=== PATIENT | male | born 1940 | race American Indian/Alaskan Native ===

== ENCOUNTER 2018-06-16 05:57 | Day surgery (SDC) | payer MEDICARE ==
[2018-06-16] MEDS ORDERED: ECOTRIN PO NR (06:38)
[2018-06-16] MEDS ORDERED: NACL 0.9% 500 ML 500 ML IV SCH (07:00)
[2018-06-16] MEDS ORDERED: ECOTRIN PO ONE (07:11)
[2018-06-16 07:18] LABS: Hematocrit 29.5 % (35.5-45.6); Hemoglobin 9.5 gm/dl (11.8-15.2); INR 1.05 (0.87-1.13); Mean Corpuscular HGB Conc 32 % (32-34); Mean Corpuscular Volume 89 fl (84-94); Platelet Count 208 K/mm3 (140-440); Red Blood Count 3.32 M/mm3 (3.65-5.03); Red Cell Distribution Width 15.9 % (13.2-15.2)
[2018-06-16 07:19] LABS: Partial Thromboplastin Time 25.2 Sec. (24.2-36.6)
[2018-06-16 07:22] LABS: Calcium 8.7 mg/dL (8.4-10.2)
[2018-06-16] MEDS ORDERED: HEPARIN 10,000 UNITS/10 ML ONE (08:18)
[2018-06-16] MEDS ORDERED: HEPARIN/NS 5000 UNIT/500ML(CATH LAB) 1,000 ML IR ONE (08:18)
[2018-06-16] MEDS ORDERED: NITROGLYCERIN SYRINGE 0 ML ONE (08:19)
[2018-06-16] MEDS ORDERED: CALAN ONE (08:19)
[2018-06-16] MEDS: VERSED ONE ×2 (08:44→08:54)
[2018-06-16] MEDS: SUBLIMAZE ONE ×2 (08:44→08:54)
[2018-06-16] MEDS: XYLOCAINE 2% INFILTRATI ONE ×3 (08:45→09:03)
[2018-06-16] MEDS ORDERED: APRESOLINE ONE (09:23)
[2018-06-16 09:34] LABS: Basophils % (Manual) 0 % (0.0-1.8); Total Cells Counted 100
[2018-06-16 09:37] LABS: Anisocytosis 1+; Ovalocytes Few; Platelet Estimate Consistent w Auto; Poikilocytosis 1+; Target Cells Few
--- NOTE | 2018-06-16 10:16 | Cardiac Catherization Report ---
CARDIAC CATHETERIZATION INDICATION FOR PROCEDURE: A 77-year-old -[place] gentleman with history of hypertension, heart failure with reduced ejection fraction, diabetes mellitus and chronic kidney disease, on peritoneal dialysis. He is scheduled for cardiac catheterization for definitive diagnosis, and treatment to rule out any underlying coronary artery disease. The patient had echocardiogram performed on 05/07/2018, which showed ejection fraction of 35-40% with moderate concentric LVH. Elevated left atrial pressure and moderately dilated left atrium noted. Trace aortic insufficiency noted. The patient is aware of the procedure, potential complications, and alternatives of therapy available. DESCRIPTION OF PROCEDURE: The patient was brought to the catheterization laboratory and he was evaluated for moderate sedation. The patient was felt to be a candidate for moderate sedation. The patient received IV Versed and fentanyl. Subsequently, the patient was prepared in a standard way and right groin was prepared with chlorhexidine solution. Sterile drapes were applied. Local anesthesia was given using 2% Xylocaine. Subsequently, using fluoroscopy and also ultrasound guidance, right femoral artery puncture was made without difficulty. Subsequently, 5-Monegasque sheath was introduced. A 5-Monegasque multipurpose catheter was used to obtain the angiograms of the left ventricle done in KING projection using hand injection followed by angiograms of the right coronary artery, left coronary artery in multiple views. At the end of the procedure, the patient received IV hydralazine for control of the blood pressure and manual pressure was applied with a good hemostasis. Final angiograms of the right femoral artery showed, a femoral access was obtained using the right common femoral artery. Good hemostasis was achieved with manual pressure. Following the patient was transferred to the room in stable condition. No untoward complications were noted. The patient tolerated moderate sedation well. The patient was monitored throughout with EKG monitoring, pulse oximetry, and also hemodynamic monitoring. At the end of the procedure, the patient is communicative, breathing normally, and moving all the extremities. No untoward effects were noted from IV sedation. HEMODYNAMICS: 1. Opening aortic pressure 194/82. Left ventricular pressure 193/25. No gradient across the aortic valve. Estimated ejection fraction 35-40%. No gradient across the aortic valve. Left ventriculogram done in KING projection using hand injection showed mildly dilated left ventricle with mild diffuse hypokinesis, ejection fraction around 35-40%. Mitral regurgitation could not be evaluated because of limited amount of dye injected. 2. Right coronary artery codominant vessel is angiographically smooth and normal, arises from right coronary cusp. Left coronary artery arises normally from left coronary cusps. Left main, LAD, which curves around the apex and its branches, circumflex artery and branch are angiographically smooth and normal, but tortuous. Mild calcifications were noted in the proximal parts of the left coronary system. FINAL IMPRESSION: 1. Mildly dilated left ventricle with mild hypokinesis, ejection fraction 35-40%. 2. Mild calcifications of the coronaries in the left coronary system. 3. Essentially normal coronary anatomy with a right coronary artery being codominant vessel. 4. Right femoral artery was used for access and no complications were noted. The patient tolerated IV sedation well. Sedation was started at 8:54 a.m. and monitoring ended at 9:19 a.m. The patient will be continued on risk factor modification and medical therapy. Findings were explained to the patient. The patient was transferred to the room in stable condition. The patient is on peritoneal dialysis on a chronic basis. [facility]# [id number] JUAREZ/COLETTE
[2018-06-16] MEDS ORDERED: NORCO 5/325 PO ONE (10:31)
[2018-06-16] MEDS ORDERED: NORCO 5/325 ONE (10:36)
--- NOTE | 2018-06-16 11:11 | Short Stay Summary ---
Short Stay Documentation Date of service: 06/16/18 - History H&P: obtained from office - Allergies and Medications Current Medications: Allergies No Known Allergies Allergy (Verified 06/16/18 06:38) Home Medications Medication Instructions Recorded Confirmed Last Taken Type Aspirin [Aspir-Low] 81 mg PO DAILY 06/16/18 06/16/18 06/15/18 History 81mg Carvedilol 25 mg PO BID 06/16/18 06/16/18 06/15/18 History 25mg Cholecalciferol Vit D3 1,000 units PO QDAY 06/16/18 06/16/18 06/15/18 History 1000 units Cyanocobalamin [Vitamin B-12] 500 mcg PO DAILY 06/16/18 06/16/18 06/15/18 History 500mcg Insulin Detemir [Levemir VIAL] 5 units SC QHS 06/16/18 06/16/18 06/15/18 History 5 units Insulin Regular, Human Inj 100 units SC TID 06/16/18 06/16/18 06/15/18 History 5 units Rosuvastatin (Nf) [Crestor] 10 mg PO QHS 06/16/18 06/16/18 06/15/18 History 10mg Torsemide [Demadex] 20 mg PO BID 06/16/18 06/16/18 06/15/18 History 20mg amLODIPine 10 mg PO DAILY 06/16/18 06/16/18 06/15/18 History 10mg hydrALAZINE [Apresoline TAB] 25 mg PO QDAY 06/16/18 06/16/18 06/15/18 History 25mg Active Medications Sodium Chloride (Nacl 0.9% 500 Ml) 500 mls @ 50 mls/hr IV DIRECT ZOË Stop: 06/16/18 16:59 Last Admin: 06/16/18 08:45 Dose: 100 mls Documented by: - Brief post op/procedure progress note Date of procedure: 06/16/18 Pre-op diagnosis: CMP Post-op diagnosis: same Procedure: C - see dictated cath report Anesthesia: local Estimated blood loss: none Condition: stable - Disposition Condition at discharge: Good Disposition: DC-01 TO HOME OR SELFCARE - Discharge Diagnoses (1) Nonischemic cardiomyopathy Status: Chronic (2) ESRD (end stage renal disease) Status: Chronic Short Stay Discharge Plan Activity: advance as tolerated Wound: open to air, keep clean and dry, per your surgeon's advice Follow up with: PRIMARY CARE, [Primary Care Provider] - 7 Days
[2018-06-16 12:42] VITALS: BP 179/74
== END 2018-06-16 13:35 | disposition home or self-care (01) ==
LOC: CATHLABREC 05:57
PROVIDERS: ATTEND Internal Medicine
DX: I25.10 Atherosclerotic heart disease of native coronary artery without angina pectoris (principal); I42.8 Other cardiomyopathies; I13.2 Hypertensive heart and chronic kidney disease with heart failure and with stage 5 chronic kidney disease, or end stage renal disease; N18.6 End stage renal disease; I50.9 Heart failure, unspecified; E78.00 Pure hypercholesterolemia, unspecified; Z99.2 Dependence on renal dialysis; Z98.890 Other specified postprocedural states; Z79.01 Long term (current) use of anticoagulants; Z79.84 Long term (current) use of oral hypoglycemic drugs; Z79.82 Long term (current) use of aspirin; Z79.4 Long term (current) use of insulin
CPT/HCPCS: 36415; 80048; 85007; 85025; 85610; 85730; 93005; 93010; 93458; 99156; 99157; J0360; J1644; J2250; J3010; J7040; 76937; Q9967

== ENCOUNTER 2021-04-04 18:27 | Emergency (ER) | payer MEDICARE ==
[2021-04-04 18:59] LABS: Basophils # (Auto) 0.1 K/mm3 (0.0-0.1); Basophils % (Auto) 2.2 % (0.0-1.8); Eosinophils # (Auto) 0.3 K/mm3 (0.0-0.4); Eosinophils % (Auto) 6.2 % (0.0-4.3); Hematocrit 20.7 % (35.5-45.6); Hemoglobin 6.6 gm/dl (11.8-15.2); Lymphocytes # (Auto) 0.8 K/mm3 (1.2-5.4); Lymphocytes % (Auto) 14.3 % (13.4-35.0); Mean Corpuscular HGB Conc 32 % (32-34); Mean Corpuscular Volume 95 fl (84-94); Monocytes # (Auto) 0.7 K/mm3 (0.0-0.8); Monocytes % (Auto) 11.5 % (0.0-7.3); Platelet Count 276 K/mm3 (140-440); Red Blood Count 2.17 M/mm3 (3.65-5.03); Red Cell Distribution Width 15.3 % (13.2-15.2)
--- NOTE | 2021-04-04 19:00 | Emergency Department Report ---
- General Chief complaint: Recheck/Abnormal Lab/Rx Stated complaint: Hgb 5.4 PUI?: No Time Seen by Provider: 04/04/21 18:43 Source: RN notes reviewed Mode of arrival: Ambulatory Limitations: Other - History of Present Illness Initial comments: Chief complaint low hemoglobin HPI: 80-year-old male with history of VTE, diabetes mellitus, end-stage renal disease on hemodialysis Friday, CVA, anemia, subdural hemorrhage, hyperlipidemia, Alzheimer's disease, Hypertension, who presents with abnormal lab. Hemoglobin 5 according to routine labs obtained at hemodialysis. Patient is a resident of [facility]. Patient denies pain. He does endorse weakness. Patient is DO NOT RESUSCITATE status according to form signed March 28, 2021 Complaint: generalized weakness -: Gradual Location: generalized Severity scale (0 -10): 0 Consistency: constant Improves with: none Worsens with: none Associated Symptoms: denies other symptoms - Related Data Home Medications Medication Instructions Recorded Confirmed Last Taken Cholecalciferol Vit D3 1,000 units PO QDAY 06/16/18 08/20/18 06/15/18 1000 units Cyanocobalamin [Vitamin B-12] 500 mcg PO DAILY 06/16/18 08/20/18 06/15/18 500 mcg Insulin Detemir [Levemir VIAL] 5 units SC QHS 06/16/18 08/20/18 06/15/18 5 units Insulin Regular, Human Inj 100 units SC TID 06/16/18 08/20/18 06/15/18 5 units Rosuvastatin (Nf) [Crestor] 10 mg PO QHS 06/16/18 08/20/18 06/15/18 10 mg Torsemide [Demadex] 20 mg PO BID 06/16/18 08/20/18 06/15/18 20 mg amLODIPine 10 mg PO DAILY 06/16/18 08/20/18 06/15/18 10 mg Previous Rx's Medication Instructions Recorded Last Taken Type Aspirin [Aspir-Low] 81 mg PO DAILY 30 Days tablet. 08/28/18 Unknown Rx HYDROcodone/APAP 5-325 [[place] 5 - 325 each PO Q6H PRN 5 Days #20 08/28/18 Unknown Rx 5-325 mg TAB] tablet Sevelamer Carbonate [Renvela] 800 mg PO TIDWM 30 Days tablet 08/28/18 Unknown Rx carvediloL [Coreg] 12.5 mg PO BID@0800,1700 30 Days 08/28/18 Unknown Rx tablet hydrALAZINE [Apresoline TAB] 25 mg PO Q8HR 30 Days tablet 08/28/18 Unknown Rx lisinopriL [Zestril TAB] 2.5 mg PO QDAY 30 Days tablet 08/28/18 Unknown Rx Allergies Allergy/AdvReac Type Severity Reaction Status Date / Time No Known Allergies Allergy Verified 06/16/18 06:38 ED Review of Systems ROS: Stated complaint: Hgb 5.4 Other details as noted in HPI Comment: All other systems reviewed and negative Respiratory: denies: cough, shortness of breath Cardiovascular: denies: chest pain Gastrointestinal: denies: abdominal pain Musculoskeletal: denies: back pain ED Past Medical Hx - Past Medical History Previous Medical History?: Yes Hx Hypertension: Yes Hx Congestive Heart Failure: Yes Hx Diabetes: Yes Hx Renal Disease: Yes (CKD) - Surgical History Past Surgical History?: Yes Additional Surgical History: peritoneal dialysis - Social History Smoking Status: Never Smoker - Medications Home Medications: Home Medications Medication Instructions Recorded Confirmed Last Taken Type Cholecalciferol Vit D3 1,000 units PO QDAY 06/16/18 08/20/18 06/15/18 History 1000 units Cyanocobalamin [Vitamin B-12] 500 mcg PO DAILY 06/16/18 08/20/18 06/15/18 History 500 mcg Insulin Detemir [Levemir VIAL] 5 units SC QHS 06/16/18 08/20/18 06/15/18 History 5 units Insulin Regular, Human Inj 100 units SC TID 06/16/18 08/20/18 06/15/18 History 5 units Rosuvastatin (Nf) [Crestor] 10 mg PO QHS 06/16/18 08/20/18 06/15/18 History 10 mg Torsemide [Demadex] 20 mg PO BID 06/16/18 08/20/18 06/15/18 History 20 mg amLODIPine 10 mg PO DAILY 06/16/18 08/20/18 06/15/18 History 10 mg Aspirin [Aspir-Low] 81 mg PO DAILY 30 Days tablet. 08/28/18 Unknown Rx HYDROcodone/APAP 5-325 [[place] 5 - 325 each PO Q6H PRN 5 Days #20 08/28/18 Unknown Rx 5-325 mg TAB] tablet Sevelamer Carbonate [Renvela] 800 mg PO TIDWM 30 Days tablet 08/28/18 Unknown Rx carvediloL [Coreg] 12.5 mg PO BID@0800,1700 30 Days 08/28/18 Unknown Rx tablet hydrALAZINE [Apresoline TAB] 25 mg PO Q8HR 30 Days tablet 08/28/18 Unknown Rx lisinopriL [Zestril TAB] 2.5 mg PO QDAY 30 Days tablet 08/28/18 Unknown Rx ED Physical Exam - General Limitations: Other General appearance: alert, in no apparent distress - Head Head exam: Present: atraumatic, normocephalic - Eye Eye exam: Present: normal appearance - ENT ENT exam: Present: mucous membranes moist - Neck Neck exam: Present: normal inspection, full ROM - Respiratory Respiratory exam: Present: normal lung sounds bilaterally. Absent: respiratory distress, wheezes, rhonchi, stridor - Cardiovascular Cardiovascular Exam: Present: regular rate, normal rhythm, normal heart sounds. Absent: systolic murmur, diastolic murmur, rubs, gallop - GI/Abdominal GI/Abdominal exam: Present: soft, normal bowel sounds. Absent: distended, tenderness, guarding, rebound - Rectal Rectal exam: Present: deferred - Extremities Exam Extremities exam: Present: pedal edema - Neurological Exam Neurological exam: Present: alert, other (Oriented to name) - Psychiatric Psychiatric exam: Present: flat affect - Skin Skin exam: Present: warm, dry, intact, normal color. Absent: rash ED Course Vital Signs 04/04/21 04/04/21 04/04/21 18:33 21:28 21:30 Temperature 97.9 F 97.5 F L Pulse Rate 51 L 61 63 Respiratory 18 11 L 12 Rate Blood Pressure 189/64 Blood Pressure 137/54 168/67 [Right] O2 Sat by Pulse 98 98 96 Oximetry 04/04/21 04/04/21 04/04/21 21:40 21:50 22:13 Temperature 97.6 F Pulse Rate 63 63 66 Respiratory 13 12 12 Rate Blood Pressure 189/64 180/68 183/71 Blood Pressure [Right] O2 Sat by Pulse 97 97 95 Oximetry 04/04/21 04/04/21 04/04/21 22:28 22:50 23:10 Temperature 97.6 F Pulse Rate 67 67 68 Respiratory 12 12 12 Rate Blood Pressure 188/70 182/64 177/67 Blood Pressure [Right] O2 Sat by Pulse 96 95 96 Oximetry 04/04/21 23:23 Temperature 98.1 F Pulse Rate 68 Respiratory 12 Rate Blood Pressure 168/69 Blood Pressure [Right] O2 Sat by Pulse 96 Oximetry ED Medical Decision Making - Lab Data Result diagrams: 04/04/21 18:44 04/04/21 18:44 - Medical Decision Making Symptomatic anemia, hemoglobin less than 7. Patient received 1 unit packed red blood cell in the emergency department. Will be discharged to [facility] after transfusion is complete. Potassium within normal limits. Chemistry otherwise unremarkable exception of chronic kidney disease. Clinical impression: Anemia chronic disease without evidence of GI bleed. Critical care attestation.: If time is entered above; I have spent that time in minutes in the direct care of this critically ill patient, excluding procedure time. ED Disposition Clinical Impression: Symptomatic anemia Disposition: [address] [place] [address] Is pt being admited?: No Does the pt Need Aspirin: No Condition: Stable Additional Instructions: Mr. Hein received 1 unit of packed red blood cells in the emergency department.
[2021-04-04 19:21] LABS: Albumin 3.6 g/dL (3.9-5); Calcium 8.9 mg/dL (8.4-10.2)
[2021-04-04] MEDS ORDERED: SODIUM CHLORIDE 0.9% 500 ML 500 ML IV ONE (20:11)
[2021-04-05 02:11] LABS: Basophils # (Auto) 0.1 K/mm3 (0.0-0.1); Basophils % (Auto) 1.5 % (0.0-1.8); Eosinophils # (Auto) 0.3 K/mm3 (0.0-0.4); Eosinophils % (Auto) 4.1 % (0.0-4.3); Hematocrit 23.2 % (35.5-45.6); Hemoglobin 7.4 gm/dl (11.8-15.2); Lymphocytes # (Auto) 1.1 K/mm3 (1.2-5.4); Lymphocytes % (Auto) 12.9 % (13.4-35.0); Mean Corpuscular HGB Conc 32 % (32-34); Mean Corpuscular Volume 92 fl (84-94); Monocytes % (Auto) 11.7 % (0.0-7.3); Platelet Count 249 K/mm3 (140-440); Red Blood Count 2.53 M/mm3 (3.65-5.03); Red Cell Distribution Width 18.3 % (13.2-15.2)
[2021-04-05 04:03] VITALS: BP 172/69
== END 2021-04-05 05:37 ==
LOC: ED 18:27
DX: D64.9 Anemia, unspecified (principal); I10 Essential (primary) hypertension; E11.8 Type 2 diabetes mellitus with unspecified complications; Z86.79 Personal history of other diseases of the circulatory system
CPT/HCPCS: 36415; 36430; 80053; 82962; 85025; 86850; 86900; 86901; 86920; 96360; 96361; 99283; J7040; P9016

== ENCOUNTER 2021-04-18 12:45 | Emergency (ER) | payer MEDICARE ==
[2021-04-18 12:48] VITALS: BP 158/96
--- NOTE | 2021-04-18 13:02 | Emergency Department Report ---
HPI - General Chief Complaint: Recheck/Abnormal Lab/Rx Time Seen by Provider: 04/18/21 12:51 - HPI HPI: Room 19 Patient is a 80-year-old male sent from [facility] secondary to anemia. Patient reportedly has an H&H of 6.3/18.9 from blood draw on 04/12/2021 at the [facility]. Patient denies complaints. Patient denies shortness of breath or dizziness. Patient denies nausea/vomiting, bright red blood per rectum or melena. Patient has a history of ESRD reportedly was last dialyzed 04/14/2021. Family states they did not dialyze the patient yesterday as scheduled secondary to his low H&H ED Past Medical Hx - Past Medical History Hx Hypertension: Yes Hx Congestive Heart Failure: Yes Hx Diabetes: Yes Hx Renal Disease: Yes (CKD) - Surgical History Additional Surgical History: peritoneal dialysis, right chest Vas-Cath - Family History Family history: no significant - Social History Smoking Status: Never Smoker Substance Use Type: None - Medications Home Medications: Home Medications Medication Instructions Recorded Confirmed Last Taken Type Cholecalciferol Vit D3 1,000 units PO QDAY 06/16/18 08/20/18 06/15/18 History 1000 units Cyanocobalamin [Vitamin B-12] 500 mcg PO DAILY 06/16/18 08/20/18 06/15/18 History 500 mcg Insulin Detemir [Levemir VIAL] 5 units SC QHS 06/16/18 08/20/18 06/15/18 History 5 units Insulin Regular, Human Inj 100 units SC TID 06/16/18 08/20/18 06/15/18 History 5 units Rosuvastatin (Nf) [Crestor] 10 mg PO QHS 06/16/18 08/20/18 06/15/18 History 10 mg Torsemide [Demadex] 20 mg PO BID 06/16/18 08/20/18 06/15/18 History 20 mg amLODIPine 10 mg PO DAILY 06/16/18 08/20/18 06/15/18 History 10 mg Aspirin [Aspir-Low] 81 mg PO DAILY 30 Days tablet. 08/28/18 Unknown Rx HYDROcodone/APAP 5-325 [[place] 5 - 325 each PO Q6H PRN 5 Days #20 08/28/18 Unknown Rx 5-325 mg TAB] tablet Sevelamer Carbonate [Renvela] 800 mg PO TIDWM 30 Days tablet 08/28/18 Unknown Rx carvediloL [Coreg] 12.5 mg PO BID@0800,1700 30 Days 08/28/18 Unknown Rx tablet hydrALAZINE [Apresoline TAB] 25 mg PO Q8HR 30 Days tablet 08/28/18 Unknown Rx lisinopriL [Zestril TAB] 2.5 mg PO QDAY 30 Days tablet 08/28/18 Unknown Rx ED Review of Systems ROS: Stated complaint: LOW HH Other details as noted in HPI Constitutional: no symptoms reported Eyes: denies: eye pain Respiratory: no symptoms reported. denies: shortness of breath Cardiovascular: denies: chest pain Endocrine: no symptoms reported Gastrointestinal: denies: abdominal pain, nausea, vomiting, melena, hematochezia Genitourinary: denies: testicular pain Musculoskeletal: denies: back pain Neurological: denies: vertigo Physical Exam - Physical Exam Vital Signs: Vital Signs 04/18/21 12:47 Temperature 98.2 F Pulse Rate 72 Respiratory 16 Rate Blood Pressure 158/96 [Right] O2 Sat by Pulse 97 Oximetry Physical Exam: GENERAL: The patient is well-developed well-nourished male lying on stretcher not appearing to be in acute distress. [] HEENT: Normocephalic. Atraumatic. Extraocular motions are intact. Patient has moist mucous membranes. NECK: Supple. Trachea midline CHEST/LUNGS: Clear to auscultation. There is no respiratory distress noted. HEART/CARDIOVASCULAR: Regular. There is no tachycardia. There is a 3/6 systolic murmur ABDOMEN: Abdomen is soft, nontender. Patient has normal bowel sounds. There is no abdominal distention. SKIN: There is no rash. There is no edema. There is no diaphoresis. NEURO: The patient is awake and alert. The patient is cooperative. The patient has no focal neurologic deficits. The patient has normal speech. GCS 15 MUSCULOSKELETAL: There is no evidence of acute injury. ED Course Vital Signs 04/18/21 12:47 Temperature 98.2 F Pulse Rate 72 Respiratory 16 Rate Blood Pressure 158/96 [Right] O2 Sat by Pulse 97 Oximetry - Consultations Consultation #1: 04/18/21 14:00 Nephrology paged 04/18/21 14:[address] Mando- can administer Kayexalate 30 g p.o. patient can follow-up for dialysis tomorrow at normally scheduled time Consultation #2: 04/18/21 14:09 Case discussed with patient's primary physician Dr. Allison transfer patient back to retirement ED Medical Decision Making - Lab Data Result diagrams: 04/18/21 13:03 04/18/21 13:03 Laboratory Tests 04/18/21 04/18/21 04/18/21 13:03 13:03 13:03 WBC 8.9 RBC 2.31 L Hgb 7.2 L Hct 21.6 L MCV 94 MCH 31 MCHC 33 RDW 18.8 H Plt Count 262 Lymph % (Auto) 9.0 L [place] % (Auto) 6.5 Eos % (Auto) 7.4 H Baso % (Auto) 1.2 Lymph # (Auto) 0.8 L [place] # (Auto) 0.6 Eos # (Auto) 0.7 H Baso # (Auto) 0.1 Seg Neutrophils % 75.9 H Seg Neutrophils # 6.7 Sodium 141 Potassium 5.4 H Chloride 103.7 Carbon Dioxide 23 Anion Gap 20 BUN 71 H Creatinine 6.9 H Estimated GFR 9 BUN/Creatinine Ratio 10 Glucose 150 H Calcium 9.4 Blood Type O POSITIVE - Differential Diagnosis Anemia of chronic disease Critical care attestation.: If time is entered above; I have spent that time in minutes in the direct care of this critically ill patient, excluding procedure time. ED Disposition Clinical Impression: Anemia of chronic disease, Hyperkalemia Disposition: 03 RESIDENTIAL FACILITY Is pt being admited?: No Does the pt Need Aspirin: No Condition: Stable Additional Instructions: Return to the emergency department should you develop worsening symptoms, isak bility to tolerate food or liquids, high fever or any other concerns Time of Disposition: 14:11
[2021-04-18 13:55] LABS: Basophils # (Auto) 0.1 K/mm3 (0.0-0.1); Basophils % (Auto) 1.2 % (0.0-1.8); Calcium 9.4 mg/dL (8.4-10.2); Eosinophils # (Auto) 0.7 K/mm3 (0.0-0.4); Eosinophils % (Auto) 7.4 % (0.0-4.3); Hematocrit 21.6 % (35.5-45.6); Hemoglobin 7.2 gm/dl (11.8-15.2); Lymphocytes # (Auto) 0.8 K/mm3 (1.2-5.4); Mean Corpuscular HGB Conc 33 % (32-34); Mean Corpuscular Volume 94 fl (84-94); Monocytes # (Auto) 0.6 K/mm3 (0.0-0.8); Monocytes % (Auto) 6.5 % (0.0-7.3); Platelet Count 262 K/mm3 (140-440); Red Blood Count 2.31 M/mm3 (3.65-5.03); Red Cell Distribution Width 18.8 % (13.2-15.2)
[2021-04-18] MEDS ORDERED: SODIUM POLYSTYRENE 15 GM/60 ML ORAL LIQD PO ONE (14:08)
== END 2021-04-18 17:06 ==
LOC: ED 12:45
DX: D64.9 Anemia, unspecified (principal); E87.5 Hyperkalemia; I13.0 Hypertensive heart and chronic kidney disease with heart failure and stage 1 through stage 4 chronic kidney disease, or unspecified chronic kidney disease; E11.22 Type 2 diabetes mellitus with diabetic chronic kidney disease; N18.9 Chronic kidney disease, unspecified
CPT/HCPCS: 36415; 80048; 85025; 86850; 86900; 86901; 99283

== ENCOUNTER 2021-04-26 19:31 | Observation (INO) | payer MEDICARE ==
[2021-04-26] MEDS ORDERED: cloNIDine 0.2 MG TAB PO ONE (20:06)
--- NOTE | 2021-04-26 20:10 | Emergency Department Report ---
HPI - General Chief Complaint: Recheck/Abnormal Lab/Rx Time Seen by Provider: 04/26/21 19:51 - HPI HPI: Room 19 The patient is a 80-year-old male present with a chief complaint of anemia. The patient was reportedly sent from [facility] for low H&H. Patient had blood drawn today which revealed an H&H of 5.3/16.3. Patient has a history end-stage renal disease but reportedly did not receive hemodialysis today secondary to the low H&H. Patient denies shortness of breath or fatigue. Patient denies complaints to me ED Past Medical Hx - Past Medical History Previous Medical History?: Yes Hx Hypertension: Yes Hx Congestive Heart Failure: Yes Hx Diabetes: Yes Hx Renal Disease: Yes (CKD) - Surgical History Past Surgical History?: Yes Additional Surgical History: peritoneal dialysis, right chest Vas-Cath - Family History Family history: no significant - Social History Smoking Status: Unknown if ever smoked Substance Use Type: None - Medications Home Medications: Home Medications Medication Instructions Recorded Confirmed Last Taken Type Cholecalciferol Vit D3 1,000 units PO QDAY 06/16/18 08/20/18 06/15/18 History 1000 units Cyanocobalamin [Vitamin B-12] 500 mcg PO DAILY 06/16/18 08/20/18 06/15/18 History 500 mcg Insulin Detemir [Levemir VIAL] 5 units SC QHS 06/16/18 08/20/18 06/15/18 History 5 units Insulin Regular, Human Inj 100 units SC TID 06/16/18 08/20/18 06/15/18 History 5 units Rosuvastatin (Nf) [Crestor] 10 mg PO QHS 06/16/18 08/20/18 06/15/18 History 10 mg Torsemide [Demadex] 20 mg PO BID 06/16/18 08/20/18 06/15/18 History 20 mg amLODIPine 10 mg PO DAILY 06/16/18 08/20/18 06/15/18 History 10 mg Aspirin [Aspir-Low] 81 mg PO DAILY 30 Days tablet. 08/28/18 Unknown Rx HYDROcodone/APAP 5-325 [[place] 5 - 325 each PO Q6H PRN 5 Days #20 08/28/18 Unknown Rx 5-325 mg TAB] tablet Sevelamer Carbonate [Renvela] 800 mg PO TIDWM 30 Days tablet 08/28/18 Unknown Rx carvediloL [Coreg] 12.5 mg PO BID@0800,1700 30 Days 08/28/18 Unknown Rx tablet hydrALAZINE [Apresoline TAB] 25 mg PO Q8HR 30 Days tablet 08/28/18 Unknown Rx lisinopriL [Zestril TAB] 2.5 mg PO QDAY 30 Days tablet 08/28/18 Unknown Rx ED Review of Systems ROS: Stated complaint: Other details as noted in HPI Constitutional: no symptoms reported Eyes: denies: eye pain ENT: denies: throat pain Respiratory: no symptoms reported. denies: shortness of breath Cardiovascular: denies: chest pain Endocrine: no symptoms reported Gastrointestinal: denies: abdominal pain Genitourinary: denies: testicular pain Musculoskeletal: denies: back pain Neurological: denies: headache Physical Exam - Physical Exam Vital Signs: Vital Signs 04/26/21 19:43 Temperature 99.8 F H Pulse Rate 77 Respiratory 20 Rate Blood Pressure 187/60 [Right] O2 Sat by Pulse 99 Oximetry Physical Exam: GENERAL: The patient is well-developed well-nourished male lying on stretcher not appearing to be in acute. [] HEENT: Normocephalic. Atraumatic. Extraocular motions are intact. Patient has moist mucous membranes. NECK: Supple. Trachea midline CHEST/LUNGS: Clear to auscultation. There is no respiratory distress noted. HEART/CARDIOVASCULAR: Regular. There is no tachycardia. There is no gallop rub or murmur. ABDOMEN: Abdomen is soft, nontender. Patient has normal bowel sounds. There is no abdominal distention. SKIN: There is no rash. There is no edema. There is no diaphoresis. NEURO: The patient is awake, alert, and oriented. The patient is cooperative. The patient has normal speech. GCS 15 MUSCULOSKELETAL: There is no evidence of acute injury. ED Course Vital Signs 04/26/21 19:43 Temperature 99.8 F H Pulse Rate 77 Respiratory 20 Rate Blood Pressure 187/60 [Right] O2 Sat by Pulse 99 Oximetry ED Medical Decision Making - Lab Data Result diagrams: 04/26/21 20:16 04/26/21 20:16 - Differential Diagnosis Anemia of chronic disease, uremia, hyperkalemia Critical care attestation.: If time is entered above; I have spent that time in minutes in the direct care of this critically ill patient, excluding procedure time. ED Disposition Clinical Impression: Anemia of chronic disease Disposition: ADMITTED INPATIENT Is pt being admited?: Yes Does the pt Need Aspirin: No Condition: Fair Time of Disposition: 22:49 (Hospitalist notified (Dr. Beal))
[2021-04-26 20:37] LABS: Basophils # (Auto) 0.1 K/mm3 (0.0-0.1); Basophils % (Auto) 0.9 % (0.0-1.8); Eosinophils # (Auto) 0.2 K/mm3 (0.0-0.4); Eosinophils % (Auto) 1.6 % (0.0-4.3); Lymphocytes # (Auto) 0.5 K/mm3 (1.2-5.4); Lymphocytes % (Auto) 4.8 % (13.4-35.0); Mean Corpuscular HGB Conc 32 % (32-34); Mean Corpuscular Volume 94 fl (84-94); Monocytes # (Auto) 0.7 K/mm3 (0.0-0.8); Monocytes % (Auto) 6.8 % (0.0-7.3); Platelet Count 246 K/mm3 (140-440); Red Blood Count 2.02 M/mm3 (3.65-5.03); Red Cell Distribution Width 17.1 % (13.2-15.2)
[2021-04-26 20:48] LABS: Hematocrit 18.9 % (35.5-45.6)
[2021-04-26 21:00] LABS: Calcium 9.7 mg/dL (8.4-10.2)
[2021-04-26] MEDS ORDERED: SODIUM CHLORIDE 0.9% 500 ML 500 ML IV ONE (22:32)
[2021-04-27] MEDS ORDERED: ONDANSETRON 4 MG/2 ML INJ IV PRN (05:12)
[2021-04-27] MEDS ORDERED: MORPHINE 2 MG/1 ML INJ IV PRN (05:12)
[2021-04-27] MEDS ORDERED: ALBUTEROL 2.5 MG/3 ML NEBU IH PRN (05:12)
[2021-04-27] MEDS ORDERED: HYDROmorphone 1 MG/1 ML INJ IV PRN (05:12)
[2021-04-27] MEDS ORDERED: ACETAMINOPHEN 325 MG TAB PO PRN (05:12)
--- NOTE | 2021-04-27 05:22 | History and Physical Report ---
History of Present Illness Date of examination: 04/27/21 Date of admission: 04/26/21 22:48 Chief complaint: Anemia History of present illness: 80-year-old male present with a chief complaint of anemia. The patient was reportedly sent from [facility] for low H&H. Patient had blood drawn today which revealed an H&H of 5.3/16.3. Patient has a history end-stage renal disease but reportedly did not receive hemodialysis today secondary to the low H&H. Patient denies shortness of breath or fatigue. Patient denies complaints to me In the emergency room patient is found to have hemoglobin of 6.2 and hematocrit of 18.9. We are giving 1 unit of packed red blood cell transfusion. Will consult nephrology for hemodialysis Past History Past Medical History: diabetes, ESRD, heart failure, hypertension, renal failure Medications and Allergies Allergies Allergy/AdvReac Type Severity Reaction Status Date / Time No Known Allergies Allergy Verified 06/16/18 06:38 Home Medications Medication Instructions Recorded Confirmed Last Taken Type Cholecalciferol Vit D3 1,000 units PO QDAY 06/16/18 08/20/18 06/15/18 History 1000 units Cyanocobalamin [Vitamin B-12] 500 mcg PO DAILY 06/16/18 08/20/18 06/15/18 History 500 mcg Insulin Detemir [Levemir VIAL] 5 units SC QHS 06/16/18 08/20/18 06/15/18 History 5 units Insulin Regular, Human Inj 100 units SC TID 06/16/18 08/20/18 06/15/18 History 5 units Rosuvastatin (Nf) [Crestor] 10 mg PO QHS 06/16/18 08/20/18 06/15/18 History 10 mg Torsemide [Demadex] 20 mg PO BID 06/16/18 08/20/18 06/15/18 History 20 mg amLODIPine 10 mg PO DAILY 06/16/18 08/20/18 06/15/18 History 10 mg Aspirin [Aspir-Low] 81 mg PO DAILY 30 Days tablet. 08/28/18 Unknown Rx HYDROcodone/APAP 5-325 [[place] 5 - 325 each PO Q6H PRN 5 Days #20 08/28/18 Unknown Rx 5-325 mg TAB] tablet Sevelamer Carbonate [Renvela] 800 mg PO TIDWM 30 Days tablet 08/28/18 Unknown Rx carvediloL [Coreg] 12.5 mg PO BID@0800,1700 30 Days 08/28/18 Unknown Rx tablet hydrALAZINE [Apresoline TAB] 25 mg PO Q8HR 30 Days tablet 08/28/18 Unknown Rx lisinopriL [Zestril TAB] 2.5 mg PO QDAY 30 Days tablet 08/28/18 Unknown Rx Active Meds: Active Medications Acetaminophen (Acetaminophen 325 Mg Tab) 650 mg PO Q4H PRN PRN Reason: Pain MILD(1-3)/Fever >100.5/ZURITA Review of Systems All systems: negative Constitutional: fatigue, weakness Exam - Constitutional Vitals: Temp Pulse Resp BP Pulse Ox 100.8 F H 77 21 172/100 100 04/27/21 02:51 04/27/21 04:31 04/27/21 04:31 04/27/21 04:31 04/27/21 04:31 General appearance: Present: no acute distress, well-nourished - EENT Eyes: Present: PERRL ENT: hearing intact, clear oral mucosa - Neck Neck: Present: supple, normal ROM - Respiratory Respiratory effort: normal Respiratory: bilateral: CTA - Cardiovascular Heart Sounds: Present: S1 & S2. Absent: rub, click - Extremities Extremities: pulses symmetrical, No edema Peripheral Pulses: within normal limits - Abdominal General gastrointestinal: Present: soft, non-tender, non-distended, normal bowel sounds Male genitourinary: Present: normal - Integumentary Integumentary: Present: clear, warm, dry - Musculoskeletal Musculoskeletal: gait normal, strength equal bilaterally - Psychiatric Psychiatric: appropriate mood/affect, intact judgment & insight - Neurologic Neurologic: CNII-XII intact, moves all extremities Results - Labs CBC & Chem 7: 04/26/21 20:16 04/26/21 20:16 Labs: Laboratory Last Values WBC 9.6 K/mm3 (4.5-11.0) 04/26/21 20:16 RBC 2.02 M/mm3 (3.65-5.03) L 04/26/21 20:16 Hgb 6.0 gm/dl (11.8-15.2) L 04/26/21 20:16 Hct 18.9 % (35.5-45.6) L* 04/26/21 20:16 MCV 94 fl (84-94) 04/26/21 20:16 MCH 30 pg (28-32) 04/26/21 20:16 MCHC 32 % (32-34) 04/26/21 20:16 RDW 17.1 % (13.2-15.2) H 04/26/21 20:16 Plt Count 246 K/mm3 (140-440) 04/26/21 20:16 Lymph % (Auto) 4.8 % (13.4-35.0) L 04/26/21 20:16 [place] % (Auto) 6.8 % (0.0-7.3) 04/26/21 20:16 Eos % (Auto) 1.6 % (0.0-4.3) 04/26/21 20:16 Baso % (Auto) 0.9 % (0.0-1.8) 04/26/21 20:16 Lymph # (Auto) 0.5 K/mm3 (1.2-5.4) L 04/26/21 20:16 [place] # (Auto) 0.7 K/mm3 (0.0-0.8) 04/26/21 20:16 Eos # (Auto) 0.2 K/mm3 (0.0-0.4) 04/26/21 20:16 Baso # (Auto) 0.1 K/mm3 (0.0-0.1) 04/26/21 20:16 Seg Neutrophils % 85.9 % (40.0-70.0) H 04/26/21 20:16 Seg Neutrophils # 8.3 K/mm3 (1.8-7.7) H 04/26/21 20:16 Sodium 135 mmol/L (137-145) L 04/26/21 20:16 Potassium 4.5 mmol/L (3.6-5.0) 04/26/21 20:16 Chloride 97.9 mmol/L (98-107) L 04/26/21 20:16 Carbon Dioxide 21 mmol/L (22-30) L 04/26/21 20:16 Anion Gap 21 mmol/L 04/26/21 20:16 BUN 48 mg/dL (9-20) H 04/26/21 20:16 Creatinine 6.2 mg/dL (0.8-1.3) H 04/26/21 20:16 Estimated GFR 11 ml/min 04/26/21 20:16 BUN/Creatinine Ratio 8 % 04/26/21 20:16 Glucose 85 mg/dL (75-100) 04/26/21 20:16 Calcium 9.7 mg/dL (8.4-10.2) 04/26/21 20:16 Blood Type O POSITIVE 04/26/21 20:16 Antibody Screen Negative 04/26/21 20:16 Crossmatch See Detail 04/26/21 20:16 Assessment and Plan VTE prophylaxis?: Mechanical Plan of care discussed with patient/family: Yes - Patient Problems (1) Anemia of chronic disease Current Visit: Yes Status: Acute Plan to address problem: Admit the patient to the medical floor. Most likely anemia of chronic disease secondary to her renal failure. We are transfusing 1 unit of packed red blood cell. We will consult nephrology for dialysis. Recheck CBC in the morning (2) Diabetes Current Visit: No Status: Chronic Plan to address problem: Continue with home medication insulin Levemir 5 units subcu nightly. Humalog moderate dose coverage with Accu-Chek before meals and at bedtime. Diabetic education (3) ESRD (end stage renal disease) Current Visit: No Status: Chronic Plan to address problem: We will consult nephrology for dialysis. Recheck BMP in the morning. Continue home medication (4) HTN (hypertension) Current Visit: No Status: Chronic Plan to address problem: Coreg 12.5 mg p.o. twice daily. Amlodipine 10 mg p.o. daily hydralazine 25 mg p.o. every 8 hours. We will monitor the blood pressure closely (5) DVT prophylaxis Current Visit: Yes Status: Acute Plan to address problem: SCD for DVT prophylaxis because of anemia. Pepcid 20 mg p.o. twice daily for GI prophylaxis. Patient is a full code
[2021-04-27] MEDS: hydrALAZINE 25 MG TAB PO SCH ×3 (06:17→22:27)
[2021-04-27] MEDS: TORSEMIDE 10 MG TAB PO SCH ×2 (06:17→17:16)
[2021-04-27] MEDS: IPRATROPIUM/ALBUTEROL SULFATE 3 ML AMPUL.NEB IH SCH ×3 (07:40→20:47)
[2021-04-27] MEDS ORDERED: carvediloL 12.5 MG TAB PO SCH (08:00)
[2021-04-27] MEDS ORDERED: INSULIN REGULAR HUMAN 100 UNIT SC SCH (08:00)
--- NOTE | 2021-04-27 08:32 | Consultation ---
History of Present Illness - History of Present Illness Thank you for the consultation Patient was evaluated today My assessment and plan are as follows End-stage renal disease: Patient is currently on maintenance hemodialysis and wi ll need to be dialyzed, will order for hemodialysis treatment today Packed red blood cell transfusion can be given during dialysis Will monitor dialysis-related labs periodically. 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, requiring packed red blood cell transfusion discussed with hospital medicine service for the above care of can be obtained in the outpatient setting Patient may benefit from a GI evaluation as well as a hematology evaluation To monitor hemoglobin and hematocrit periodically erythropoietin as needed, #Bone mineral disorder and secondary hyperparathyroidism: Goal phosphorus under 5-1/2 PTH under 600 Monitor phosphorus and PTH level periodically, #Diet and nutrition: Nepro, multivitamin Author: Vidal Ornelas M.D. [facility], [address] [place] [address] Tel; [phone] Source of information: From current chart as well juan's family [facility] established with a auto fleet manager History of present illness patient is 80-year-old -Al[place]ian male who is currently dialysis dependent and was sent to the hospital due to low hemoglobin,for which she has been given packed red blood cell transfusion and workup is in progress through the hospital medicine service. Consultation was placed for management of end-stage kidney disease patient needing dialysis today, events of this hospitalization were noted he is currently a resident of [facility] he is being seen here by immigration guard nephrology group Past medical history: end-stage renal disease anemia in end-stage renal disease Bone mineral disorder Secondary hyperparathyroidism Current allergies: Reviewed from the current chart Social history: Reviewed from the current chart Family history: Reviewed from the current chart Review of system: Positive for Recently noted to be anemic All other review of systems negative Physical examination Vitals: Reviewed General: No acute distress HEENT: Oral mucosa moist no pallor or icterus Neck: Supple without any JVD thyromegaly or nodular mass Chest: Clear to auscultation Heart: Regular rate and rhythm S1-S2 heard no S3-S4 Abdomen: Soft nontender, bowel sounds present no renal bruit no suprapubic masses no CVA tenderness noted Extremity: Minimal edema dry skin no peripheral cyanosis Endocrine: Thyroid not enlarged Psychiatric: No agitation and aggression noted Musculoskeletal: No joint effusion noted Labs and x-rays: Reviewed from this admission Past History Past Medical History: diabetes, ESRD, heart failure, hypertension, renal failure Medications and Allergies Allergies Allergy/AdvReac Type Severity Reaction Status Date / Time No Known Allergies Allergy Verified 06/16/18 06:38 Home Medications Medication Instructions Recorded Confirmed Last Taken Type Cholecalciferol Vit D3 1,000 units PO QDAY 06/16/18 04/27/21 06/15/18 History 1000 units Cyanocobalamin [Vitamin B-12] 500 mcg PO DAILY 06/16/18 04/27/21 06/15/18 History 500 mcg Insulin Detemir [Levemir VIAL] 5 units SC QHS 06/16/18 04/27/21 06/15/18 History 5 units Insulin Regular, Human Inj 100 units SC TID 06/16/18 04/27/21 06/15/18 History 5 units Rosuvastatin (Nf) [Crestor] 10 mg PO QHS 06/16/18 04/27/21 06/15/18 History 10 mg Torsemide [Demadex] 20 mg PO BID 06/16/18 04/27/21 06/15/18 History 20 mg amLODIPine 10 mg PO DAILY 06/16/18 04/27/21 06/15/18 History 10 mg Aspirin [Aspir-Low] 81 mg PO DAILY 30 Days tablet. 08/28/18 04/27/21 Unknown Rx HYDROcodone/APAP 5-325 [[place] 5 - 325 each PO Q6H PRN 5 Days #20 08/28/18 04/27/21 Unknown Rx 5-325 mg TAB] tablet Sevelamer Carbonate [Renvela] 800 mg PO TIDWM 30 Days tablet 08/28/18 04/27/21 Unknown Rx carvediloL [Coreg] 12.5 mg PO BID@0800,1700 30 Days 08/28/18 04/27/21 Unknown Rx tablet hydrALAZINE [Apresoline TAB] 25 mg PO Q8HR 30 Days tablet 08/28/18 04/27/21 Unknown Rx lisinopriL [Zestril TAB] 2.5 mg PO QDAY 30 Days tablet 08/28/18 04/27/21 Unknown Rx Active Meds: Active Medications Acetaminophen (Acetaminophen 325 Mg Tab) 650 mg PO Q4H PRN PRN Reason: Pain MILD(1-3)/Fever >100.5/ZURITA Albuterol (Albuterol 2.5 Mg/3 Ml Nebu) 2.5 mg IH Q4HRT PRN PRN Reason: Shortness Of Breath Albuterol/Ipratropium (Ipratropium/Albuterol Sulfate 3 Ml Ampul.Neb) 1 ampul IH Q6HRT [facility] Last Admin: 04/27/21 07:40 Dose: 1 ampul Documented by: Amlodipine Besylate (Amlodipine 10 Mg Tab) 10 mg PO DAILY [facility] Atorvastatin Calcium (Atorvastatin 20 Mg Tab) 20 mg PO QHS [facility] Carvedilol (Carvedilol 12.5 Mg Tab) 12.5 mg PO BID@0800,1700 [facility] Cholecalciferol (Cholecalciferol (Vit D3) 1000 Unit (25 Mcg) Tab) 1,000 unit PO QDAY [facility] Famotidine (Famotidine 10 Mg Tab) 10 mg PO BID [facility] Hydralazine HCl (Hydralazine 25 Mg Tab) 25 mg PO Q8HR [facility] Last Admin: 04/27/21 06:17 Dose: 25 mg Documented by: Hydromorphone HCl (Hydromorphone 1 Mg/1 Ml Inj) 0.5 mg IV Q3H PRN PRN Reason: Pain , Severe (7-10) Insulin Glargine (Insulin Glargine 100 Units/Ml) 5 units SUB-Q QHS [facility] Insulin Human Lispro (Insulin Lispro 100 Unit/Ml) 0 unit SUB-Q [facility]; Prot ocol Lisinopril (Lisinopril 5 Mg Tab) 2.5 mg PO QDAY [facility] Morphine Sulfate (Morphine 2 Mg/1 Ml Inj) 2 mg IV Q4H PRN PRN Reason: Pain, Moderate (4-6) Ondansetron HCl (Ondansetron 4 Mg/2 Ml Inj) 4 mg IV Q8H PRN PRN Reason: Nausea And Vomiting Sevelamer Carbonate (Sevelamer Carbonate 800 Mg Tab) 800 mg PO TIDWM [facility] Sodium Chloride (Sodium Chloride 0.9% 10 Ml Flush Syringe) 10 ml IV BID ZOË Sodium Chloride (Sodium Chloride 0.9% 10 Ml Flush Syringe) 10 ml IV PRN PRN PRN Reason: LINE FLUSH Torsemide (Torsemide 10 Mg Tab) 20 mg PO BID@0600,1800 [facility] Last Admin: 04/27/21 06:17 Dose: 20 mg Documented by: Exam - Vital Signs Vital signs: Vital Signs Temp Pulse Resp BP Pulse Ox 99.8 F H 77 20 187/60 99 04/26/21 19:43 04/26/21 19:43 04/26/21 19:43 04/26/21 19:43 04/26/21 19:43 Results - Lab Results 04/27/21 15:04 04/26/21 20:16 Most recent lab results Calcium 9.7 mg/dL (8.4-10.2) 04/26/21 20:16
[2021-04-27] MEDS: INSULIN LISPRO 100 UNIT/ML SUB-Q SCH ×4 (08:48→22:27)
[2021-04-27] MEDS ORDERED: FAMOTIDINE 20 MG TAB PO SCH (10:00)
[2021-04-27] MEDS ORDERED: NON-FORMULARY EACH (Torsemide [Demadex] 20 MG Tablet) PO SCH (10:00)
[2021-04-27] MEDS ORDERED: CHOLECALCIFEROL PO SCH (10:00)
[2021-04-27] MEDS ORDERED: NON-FORMULARY EACH (Amlodipine 10 MG) PO SCH (10:00)
[2021-04-27] MEDS: LISINOPRIL 5 MG TAB PO SCH (10:39)
[2021-04-27] MEDS: FAMOTIDINE 10 MG TAB PO SCH ×2 (10:39→22:27)
[2021-04-27] MEDS: amLODIPine 10 MG TAB PO SCH (10:39)
[2021-04-27] MEDS: SEVELAMER CARBONATE 800 MG TAB PO SCH ×3 (10:39→17:15)
[2021-04-27] MEDS: CHOLECALCIFEROL (VIT D3) 1000 UNIT (25 mcg) TAB PO SCH (10:40)
--- NOTE | 2021-04-27 13:03 | Discharge Summary ---
Providers - Providers Date of Admission: 04/26/21 22:48 Date of discharge: 04/27/21 Attending physician: NIKIA JERNIGAN MD 04/27/21 05:12 Consult to Physician [CONS] Routine Comment: Consulting Provider: FREDDY PANCHAL Physician Instructions: Reason For Exam: esrd Primary care physician: KEERTHI CORDOBA Hospitalization Reason for admission: anemia Condition: Fair Hospital course: History of present illness: 80-year-old male present with a chief complaint of anemia. The patient was re portedly sent from [facility] for low H&H. Patient had blood drawn today which revealed an H&H of 5.3/16.3. Patient has a history end-stage renal disease but reportedly did not receive hemodialysis today secondary to the low H&H. Patient denies shortness of breath or fatigue. Patient denies complaints to me In the emergency room patient is found to have hemoglobin of 6.2 and hematocrit of 18.9. We are giving 1 unit of packed red blood cell transfusion. Will consult nephrology for hemodialysis. Hospital Course Patient admitted for symptomatic anemia. Hemoglobin noted to be 6.2. Patient was transfused 1 unit PRBC. Nephrology consulted this admission for hemodialysis. Patient will get hemodialysis today. If patient hemoglobin greater than 7, patient can be discharged after hemodialysis today. Patient is a resident of [facility] and can go back once transportation arranged and the aforementioned criteria are satisfied. Assessment and Plan (1) Anemia of chronic disease Current Visit: Yes Status: Acute Plan to address problem: Admit the patient to the medical floor. Most likely anemia of chronic disease secondary to her renal failure. We are transfusing 1 unit of packed red blood cell. We will consult nephrology for dialysis. Recheck CBC in the morning (2) Diabetes Current Visit: No Status: Chronic Plan to address problem: Continue with home medication insulin Levemir 5 units subcu nightly. Humalog moderate dose coverage with Accu-Chek before meals and at bedtime. Diabetic education (3) ESRD (end stage renal disease) Current Visit: No Status: Chronic Plan to address problem: We will consult nephrology for dialysis. Recheck BMP in the morning. Continue home medication (4) HTN (hypertension) Current Visit: No Status: Chronic Plan to address problem: Coreg 12.5 mg p.o. twice daily. Amlodipine 10 mg p.o. daily hydralazine 25 mg p.o. every 8 hours. We will monitor the blood pressure closely (5) DVT prophylaxis Current Visit: Yes Status: Acute Plan to address problem: SCD for DVT prophylaxis because of anemia. Pepcid 20 mg p.o. twice daily for GI prophylaxis. Patient is a full code Disposition: [facility] Final Discharge Diagnosis (Prints w/discharge instructions): symptomatic anemia Time spent for discharge: 35 Core Measure Documentation - Palliative Care Palliative Care/ Comfort Measures: Not Applicable - Core Measures Any of the following diagnoses?: none Exam - Physical Exam Narrative exam: General appearance: Present: no acute distress, well-nourished - EENT Eyes: Present: PERRL ENT: hearing intact, clear oral mucosa - Neck Neck: Present: supple, normal ROM - Respiratory Respiratory effort: normal Respiratory: bilateral: CTA - Cardiovascular Heart Sounds: Present: S1 & S2. Absent: rub, click - Extremities Extremities: pulses symmetrical, No edema Peripheral Pulses: within normal limits - Abdominal General gastrointestinal: Present: soft, non-tender, non-distended, normal bowel sounds Male genitourinary: Present: normal - Integumentary Integumentary: Present: clear, warm, dry - Musculoskeletal Musculoskeletal: gait normal, strength equal bilaterally - Psychiatric Psychiatric: appropriate mood/affect, intact judgment & insight - Neurologic Neurologic: CNII-XII intact, moves all extremities - Constitutional Vitals: Temp Pulse Resp BP Pulse Ox 100.8 F H 61 14 146/123 99 04/27/21 02:51 04/27/21 08:31 04/27/21 08:31 04/27/21 08:31 04/27/21 08:31 Plan Plan of Treatment: Anival Hein. You were admitted for symptomatic anemia. Your hemoglobin was found to be low and you were subsequently transfused 1 unit of blood. He also needed hemodialysis. We consulted a assembly room supervisor to come evaluate you and they started hemodialysis. We recommend you follow-up outpatient with your assembly room supervisor. We also recommend you follow-up with a major league baseball player and a bulb inspector. Follow up with: KEERTHI CORDOBA MD [Primary Care Provider] - 3-5 Days MONTSE MCCALL MD [Staff Physician] - 7 Days
[2021-04-27 16:04] LABS: Hemoglobin 6.4 gm/dl (11.8-15.2)
[2021-04-27 16:13] LABS: Hematocrit 19.8 % (35.5-45.6)
[2021-04-27 16:35] LABS: Hepatitis C Virus Antibody Non-Reactive (NonReactive)
[2021-04-27 16:44] LABS: Hepatitis B Surface Antigen Nonreactive (Negative)
[2021-04-27] MEDS ORDERED: SODIUM CHLORIDE 0.9% 500 ML 500 ML IV SCH (17:00)
[2021-04-27] MEDS ORDERED: NON-FORMULARY EACH (Rosuvastatin (Nf) 10 MG Tablet) PO SCH (22:00)
[2021-04-27] MEDS ORDERED: NON-FORMULARY EACH (Insulin Detemir [Levemir Vial] 100 UNIT/ML Vial) SC SCH (22:00)
[2021-04-27] MEDS: INSULIN GLARGINE 100 UNITS/ML SUB-Q SCH (22:28)
[2021-04-28] MEDS ORDERED: SODIUM CHLORIDE 0.9% 500 ML 500 ML IV SCH (02:00)
[2021-04-28] MEDS: IPRATROPIUM/ALBUTEROL SULFATE 3 ML AMPUL.NEB IH SCH ×4 (02:19→19:44)
[2021-04-28] MEDS: TORSEMIDE 10 MG TAB PO SCH ×2 (06:49→17:01)
[2021-04-28] MEDS: hydrALAZINE 25 MG TAB PO SCH ×3 (06:50→22:24)
[2021-04-28 07:20] LABS: Hematocrit 24.1 % (35.5-45.6); Hemoglobin 7.8 gm/dl (11.8-15.2); Mean Corpuscular HGB Conc 33 % (32-34); Mean Corpuscular Volume 92 fl (84-94); Platelet Count 206 K/mm3 (140-440); Red Blood Count 2.63 M/mm3 (3.65-5.03); Red Cell Distribution Width 16.9 % (13.2-15.2)
[2021-04-28 07:28] LABS: Calcium 8.9 mg/dL (8.4-10.2)
--- NOTE | 2021-04-28 08:16 | Progress Note ---
Assessment and Plan Assessment and plan: History of present illness: 80-year-old male present with a chief complaint of anemia. The patient was reportedly sent from [facility] for low H&H. Patient had blood drawn today which revealed an H&H of 5.3/16.3. Patient has a history end-stage renal disease but reportedly did not receive hemodialysis today secondary to the low H&H. Patient denies shortness of breath or fatigue. Patient denies complaints to me In the emergency room patient is found to have hemoglobin of 6.2 and hematocrit of 18.9. We are giving 1 unit of packed red blood cell transfusion. Will consult nephrology for hemodialysis. Hospital Course Patient admitted for symptomatic anemia. Hemoglobin noted to be 6.2. Patient was transfused 1 unit PRBC. Nephrology consulted this admission for hemodialysis. Patient will get hemodialysis today. Hemodialysis completed after 1 unit transfused. Repeat hemoglobin 6.4. Subsequently ordered additional 1 unit prbc, repeat on AM labs now 7.8. Patient is a resident of [facility] and can go back once transportation arranged.. Assessment and Plan (1) Anemia of chronic disease Current Visit: Yes Status: Acute Plan to address problem: Admit the patient to the medical floor. Most likely anemia of chronic disease secondary to her renal failure. We are transfusing 1 unit of packed red blood cell. We will consult nephrology for dialysis. Recheck CBC in the morning (2) Diabetes Current Visit: No Status: Chronic Plan to address problem: Continue with home medication insulin Levemir 5 units subcu nightly. Humalog moderate dose coverage with Accu-Chek before meals and at bedtime. Diabetic education (3) ESRD (end stage renal disease) Current Visit: No Status: Chronic Plan to address problem: We will consult nephrology for dialysis. Recheck BMP in the morning. Continue home medication (4) HTN (hypertension) Current Visit: No Status: Chronic Plan to address problem: Coreg 12.5 mg p.o. twice daily. Amlodipine 10 mg p.o. daily hydralazine 25 mg p.o. every 8 hours. We will monitor the blood pressure closely (5) DVT prophylaxis Current Visit: Yes Status: Acute Plan to address problem: SCD for DVT prophylaxis because of anemia. Pepcid 20 mg p.o. twice daily for GI prophylaxis. Patient is a full code History Interval history: Transfused 1 unit prbc overnight. No events overnight otherwise. Discharge back to snf. Hospitalist Physical - Physical exam Narrative exam: General appearance: Present: no acute distress, well-nourished - EENT Eyes: Present: PERRL ENT: hearing intact, clear oral mucosa - Neck Neck: Present: supple, normal ROM - Respiratory Respiratory effort: normal Respiratory: bilateral: CTA - Cardiovascular Heart Sounds: Present: S1 & S2. Absent: rub, click - Extremities Extremities: pulses symmetrical, No edema Peripheral Pulses: within normal limits - Abdominal General gastrointestinal: Present: soft, non-tender, non-distended, normal bowel sounds Male genitourinary: Present: normal - Integumentary Integumentary: Present: clear, warm, dry - Musculoskeletal Musculoskeletal: gait normal, strength equal bilaterally - Psychiatric Psychiatric: appropriate mood/affect, intact judgment & insight - Neurologic Neurologic: CNII-XII intact, moves all extremities - Constitutional Vitals: Temp Pulse Resp BP Pulse Ox 98.4 F 58 L 18 149/45 99 04/28/21 04:08 04/28/21 04:08 04/28/21 04:30 04/28/21 04:08 04/28/21 07:19 General appearance: Present: no acute distress, well-nourished Results - Labs CBC & Chem 7: 04/28/21 06:59 04/28/21 06:59 Labs: Laboratory Last Values WBC 6.5 K/mm3 (4.5-11.0) 04/28/21 06:59 RBC 2.63 M/mm3 (3.65-5.03) L 04/28/21 06:59 Hgb 7.8 gm/dl (11.8-15.2) L 04/28/21 06:59 Hct 24.1 % (35.5-45.6) L 04/28/21 06:59 MCV 92 fl (84-94) 04/28/21 06:59 MCH 30 pg (28-32) 04/28/21 06:59 MCHC 33 % (32-34) 04/28/21 06:59 RDW 16.9 % (13.2-15.2) H 04/28/21 06:59 Plt Count 206 K/mm3 (140-440) 04/28/21 06:59 Lymph % (Auto) 4.8 % (13.4-35.0) L 04/26/21 20:16 [place] % (Auto) [place] 04/28/21 06:59 Eos % (Auto) 1.6 % (0.0-4.3) 04/26/21 20:16 Baso % (Auto) 0.9 % (0.0-1.8) 04/26/21 20:16 Lymph # (Auto) 0.5 K/mm3 (1.2-5.4) L 04/26/21 20:16 [place] # (Auto) 0.7 K/mm3 (0.0-0.8) 04/26/21 20:16 Eos # (Auto) 0.2 K/mm3 (0.0-0.4) 04/26/21 20:16 Baso # (Auto) 0.1 K/mm3 (0.0-0.1) 04/26/21 20:16 Seg Neutrophils % 85.9 % (40.0-70.0) H 04/26/21 20:16 Seg Neutrophils # 8.3 K/mm3 (1.8-7.7) H 04/26/21 20:16 Sodium 138 mmol/L (137-145) 04/28/21 06:59 Potassium 3.4 mmol/L (3.6-5.0) L D 04/28/21 06:59 Chloride 97.7 mmol/L (98-107) L 04/28/21 06:59 Carbon Dioxide 27 mmol/L (22-30) 04/28/21 06:59 Anion Gap 17 mmol/L 04/28/21 06:59 BUN 26 mg/dL (9-20) H 04/28/21 06:59 Creatinine 3.9 mg/dL (0.8-1.3) H 04/28/21 06:59 Estimated GFR 18 ml/min 04/28/21 06:59 BUN/Creatinine Ratio 7 % 04/28/21 06:59 Glucose 85 mg/dL (75-100) 04/28/21 06:59 POC Glucose 121 mg/dL (70-105) H 04/27/21 22:25 Calcium 8.9 mg/dL (8.4-10.2) 04/28/21 06:59 Hepatitis A IgM Ab Non-reactive (NonReactive) 04/27/21 15:04 Hep Bs Antigen Nonreactive (Negative) 04/27/21 15:04 Hep B Core IgM Ab Non-reactive (NonReactive) 04/27/21 15:04 Hepatitis C Antibody Non-reactive (NonReactive) 04/27/21 15:04 Blood Type O POSITIVE 04/26/21 20:16 Antibody Screen Negative 04/26/21 20:16 Crossmatch See Detail 04/26/21 20:16 Yi/IV: Voiding Method Incontinent Active Medications - Current Medications Current Medications: Generic Name Dose Route Start Last Admin Trade Name Freq PRN Reason Stop Dose Admin Acetaminophen 650 mg 04/27/21 05:12 Acetaminophen 325 Mg Tab PO Q4H PRN Pain MILD(1-3)/Fever >100.5/ZURITA Albuterol 2.5 mg 04/27/21 05:12 Albuterol 2.5 Mg/3 Ml Nebu IH Q4HRT PRN Shortness Of Breath Albuterol/Ipratropium 1 ampul 04/28/21 08:00 Ipratropium/Albuterol Sulfate 3 Ml Ampul.Neb IH TIDRT ZOË Amlodipine Besylate 10 mg 04/27/21 10:00 04/27/21 10:39 Amlodipine 10 Mg Tab PO 10 mg DAILY ZOË Administration Atorvastatin Calcium 20 mg 04/27/21 22:00 04/27/21 22:27 Atorvastatin 20 Mg Tab PO 20 mg QHS ZOË Administration Cholecalciferol 1,000 unit 04/27/21 10:00 04/27/21 10:40 Cholecalciferol (Vit D3) 1000 Unit (25 Mcg) Tab PO 1,000 unit QDAY ZOË Administration Famotidine 10 mg 04/27/21 10:00 04/27/21 22:27 Famotidine 10 Mg Tab PO 10 mg BID ZOË Administration Hydralazine HCl 25 mg 04/27/21 06:00 04/28/21 06:50 Hydralazine 25 Mg Tab PO 25 mg Q8HR ZOË Administration Hydromorphone HCl 0.5 mg 04/27/21 05:12 Hydromorphone 1 Mg/1 Ml Inj IV Q3H PRN Pain , Severe (7-10) Sodium Chloride 500 mls @ 50 mls/hr 04/28/21 02:00 04/28/21 01:50 Nacl 0.9% 500 Ml IV 04/28/21 11:59 50 mls/hr DIRECT ZOË Administration Insulin Glargine 5 units 04/27/21 22:00 04/27/21 22:28 Insulin Glargine 100 Units/Ml SUB-Q Not Given QHS ZOË Insulin Human Lispro 0 unit 04/27/21 07:30 04/27/21 22:27 Insulin Lispro 100 Unit/Ml SUB-Q Not Given ACHS [facility] Protocol Lisinopril 2.5 mg 04/27/21 10:00 04/27/21 10:39 Lisinopril 5 Mg Tab PO 2.5 mg QDAY ZOË Administration Morphine Sulfate 2 mg 04/27/21 05:12 04/28/21 04:30 Morphine 2 Mg/1 Ml Inj IV 2 mg Q4H PRN Administration Pain, Moderate (4-6) Ondansetron HCl 4 mg 04/27/21 05:12 Ondansetron 4 Mg/2 Ml Inj IV Q8H PRN Nausea And Vomiting Sevelamer Carbonate 800 mg 04/27/21 08:00 04/27/21 17:15 Sevelamer Carbonate 800 Mg Tab PO Not Given TIDWM [facility] Sodium Chloride 10 ml 04/27/21 10:00 04/27/21 22:44 Sodium Chloride 0.9% 10 Ml Flush Syringe IV Not Given BID ZOË Sodium Chloride 10 ml 04/27/21 05:12 Sodium Chloride 0.9% 10 Ml Flush Syringe IV PRN PRN LINE FLUSH Torsemide 20 mg 04/27/21 06:00 04/28/21 06:49 Torsemide 10 Mg Tab PO 20 mg BID@0600,1800 ZOË Administration
[2021-04-28 09:09] LABS: Band Neutrophils # (Manual) 0.1 K/mm3; Total Cells Counted 100
[2021-04-28 09:10] LABS: Monocytes % (Manual) 13 % (0.0-7.3)
[2021-04-28] MEDS: amLODIPine 10 MG TAB PO SCH (09:10)
[2021-04-28] MEDS: FAMOTIDINE 10 MG TAB PO SCH ×2 (09:10→22:25)
[2021-04-28] MEDS: SEVELAMER CARBONATE 800 MG TAB PO SCH ×3 (09:10→17:01)
[2021-04-28] MEDS: INSULIN LISPRO 100 UNIT/ML SUB-Q SCH ×4 (09:10→22:24)
[2021-04-28] MEDS: LISINOPRIL 5 MG TAB PO SCH (09:10)
[2021-04-28] MEDS: CHOLECALCIFEROL (VIT D3) 1000 UNIT (25 mcg) TAB PO SCH (09:10)
[2021-04-28 09:11] LABS: Anisocytosis 1+
--- NOTE | 2021-04-28 17:14 | Progress Note ---
Subjective Date of service: 04/28/21 Principal diagnosis: esrd Interval history: Impression/Plan: End-stage renal disease: Patient is currently on maintenance hemodialysis continue MWF Packed red blood cell transfusion prn Will monitor dialysis-related labs periodically. 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, requiring packed red blood cell transfusion Patient may benefit from a GI evaluation as well as a hematology evaluation To monitor hemoglobin and hematocrit periodically erythropoietin as needed, #Bone mineral disorder and secondary hyperparathyroidism: Goal phosphorus under 5-1/2 PTH under 600 Monitor phosphorus and PTH level periodically, #Diet and nutrition: Nepro, multivitamin Source of information: From current chart as well zarinaent's family Patient currently dialyzes in [facility] and has seen us in the past and established with a city dispatcher History of present illness labs and chart reviewed he is currently a resident of [facility] he is being seen here by [facility] Physical examination Vitals: Reviewed General: No acute distress HEENT: Oral mucosa moist no pallor or icterus Neck: Supple without any JVD thyromegaly or nodular mass Chest: Clear to auscultation Heart: Regular rate and rhythm S1-S2 heard no S3-S4 Abdomen: Soft nontender, bowel sounds present no renal bruit no suprapubic masses no CVA tenderness noted Extremity: Minimal edema dry skin no peripheral cyanosis Endocrine: Thyroid not enlarged Psychiatric: No agitation and aggression noted Musculoskeletal: No joint effusion noted Objective - Vital Signs Vital signs: Vital Signs - 12hr 04/28/21 04/28/21 04/28/21 07:19 08:45 09:16 Temperature 97.8 F Pulse Rate 56 L Pulse Rate [ Anterior Bilateral Throughout] Respiratory 18 Rate Respiratory Rate [Anterior Bilateral Throughout] Blood Pressure 157/57 O2 Sat by Pulse 99 96 100 Oximetry 04/28/21 14:47 Temperature Pulse Rate Pulse Rate [ 56 L Anterior Bilateral Throughout] Respiratory Rate Respiratory 16 Rate [Anterior Bilateral Throughout] Blood Pressure O2 Sat by Pulse Oximetry - Lab 04/28/21 06:59 04/28/21 06:59 Most recent lab results Calcium 8.9 mg/dL (8.4-10.2) 04/28/21 06:59 Medications & Allergies - Medications Allergies/Adverse Reactions: Allergies No Known Allergies Allergy (Verified 06/16/18 06:38) Home Medications: Home Medications Medication Instructions Recorded Confirmed Last Taken Type Cholecalciferol Vit D3 1,000 units PO QDAY 06/16/18 04/27/21 06/15/18 History 1000 units Cyanocobalamin [Vitamin B-12] 500 mcg PO DAILY 06/16/18 04/27/21 06/15/18 His tory 500 mcg Insulin Detemir [Levemir VIAL] 5 units SC QHS 06/16/18 04/27/21 06/15/18 History 5 units Insulin Regular, Human Inj 100 units SC TID 06/16/18 04/27/21 06/15/18 History 5 units Rosuvastatin (Nf) [Crestor] 10 mg PO QHS 06/16/18 04/27/21 06/15/18 History 10 mg Torsemide [Demadex] 20 mg PO BID 06/16/18 04/27/21 06/15/18 History 20 mg amLODIPine 10 mg PO DAILY 06/16/18 04/27/21 06/15/18 History 10 mg Aspirin [Aspir-Low] 81 mg PO DAILY 30 Days tablet. 08/28/18 04/27/21 Unknown Rx HYDROcodone/APAP 5-325 [[place] 5 - 325 each PO Q6H PRN 5 Days #20 08/28/18 04/27/21 Unknown Rx 5-325 mg TAB] tablet Sevelamer Carbonate [Renvela] 800 mg PO TIDWM 30 Days tablet 08/28/18 04/27/21 Unknown Rx carvediloL [Coreg] 12.5 mg PO BID@0800,1700 30 Days 08/28/18 04/27/21 Unknown Rx tablet hydrALAZINE [Apresoline TAB] 25 mg PO Q8HR 30 Days tablet 08/28/18 04/27/21 Unknown Rx lisinopriL [Zestril TAB] 2.5 mg PO QDAY 30 Days tablet 08/28/18 04/27/21 Unknown Rx Active Medications: Generic Name Dose Route Start Last Admin Trade Name Freq PRN Reason Stop Dose Admin Acetaminophen 650 mg 04/27/21 05:12 Acetaminophen 325 Mg Tab PO Q4H PRN Pain MILD(1-3)/Fever >100.5/ZURITA Albuterol 2.5 mg 04/27/21 05:12 Albuterol 2.5 Mg/3 Ml Nebu IH Q4HRT PRN Shortness Of Breath Albuterol/Ipratropium 1 ampul 04/28/21 08:00 04/28/21 14:45 Ipratropium/Albuterol Sulfate 3 Ml Ampul.Neb IH 1 ampul TIDRT ZOË Administration Amlodipine Besylate 10 mg 04/27/21 10:00 04/28/21 09:10 Amlodipine 10 Mg Tab PO 10 mg DAILY ZOË Administration Atorvastatin Calcium 20 mg 04/27/21 22:00 04/27/21 22:27 Atorvastatin 20 Mg Tab PO 20 mg QHS [facility] Administration Cholecalciferol 1,000 unit 04/27/21 10:00 04/28/21 09:10 Cholecalciferol (Vit D3) 1000 Unit (25 Mcg) Tab PO 1,000 unit QDAY [facility] Administration Famotidine 10 mg 04/27/21 10:00 04/28/21 09:10 Famotidine 10 Mg Tab PO 10 mg BID ZOË Administration Hydralazine HCl 25 mg 04/27/21 06:00 04/28/21 14:56 Hydralazine 25 Mg Tab PO 25 mg Q8HR [facility] Administration Hydromorphone HCl 0.5 mg 04/27/21 05:12 Hydromorphone 1 Mg/1 Ml Inj IV Q3H PRN Pain , Severe (7-10) Insulin Glargine 5 units 04/27/21 22:00 04/27/21 22:28 Insulin Glargine 100 Units/Ml SUB-Q Not Given QHS [facility] Insulin Human Lispro 0 unit 04/27/21 07:30 04/28/21 17:01 Insulin Lispro 100 Unit/Ml SUB-Q Not Given [facility] Protocol Lisinopril 2.5 mg 04/27/21 10:00 04/28/21 09:10 Lisinopril 5 Mg Tab PO 2.5 mg QDAY [facility] Administration Morphine Sulfate 2 mg 04/27/21 05:12 04/28/21 04:30 Morphine 2 Mg/1 Ml Inj IV 2 mg Q4H PRN Administration Pain, Moderate (4-6) Ondansetron HCl 4 mg 04/27/21 05:12 Ondansetron 4 Mg/2 Ml Inj IV Q8H PRN Nausea And Vomiting Sevelamer Carbonate 800 mg 04/27/21 08:00 04/28/21 17:01 Sevelamer Carbonate 800 Mg Tab PO Not Given TIDWM ZOË Sodium Chloride 10 ml 04/27/21 10:00 04/28/21 09:10 Sodium Chloride 0.9% 10 Ml Flush Syringe IV 10 ml BID ZOË Administration Sodium Chloride 10 ml 04/27/21 05:12 Sodium Chloride 0.9% 10 Ml Flush Syringe IV PRN PRN LINE FLUSH Torsemide 20 mg 04/27/21 06:00 04/28/21 17:01 Torsemide 10 Mg Tab PO Not Given BID@0600,1800 [facility]
[2021-04-28] MEDS ORDERED: EPOETIN ALFA-EPBX 20,000 UNIT/1 ML VIAL IV PRN (17:16)
[2021-04-28] MEDS: INSULIN GLARGINE 100 UNITS/ML SUB-Q SCH (22:24)
[2021-04-29 06:28] LABS: Hematocrit 24.3 % (35.5-45.6); Hemoglobin 7.9 gm/dl (11.8-15.2); Mean Corpuscular HGB Conc 33 % (32-34); Mean Corpuscular Volume 93 fl (84-94); Platelet Count 224 K/mm3 (140-440); Red Blood Count 2.61 M/mm3 (3.65-5.03); Red Cell Distribution Width 17.7 % (13.2-15.2)
[2021-04-29 06:37] LABS: Calcium 8.9 mg/dL (8.4-10.2)
[2021-04-29] MEDS: hydrALAZINE 25 MG TAB PO SCH (07:35)
[2021-04-29] MEDS: TORSEMIDE 10 MG TAB PO SCH (07:35)
[2021-04-29] MEDS: INSULIN LISPRO 100 UNIT/ML SUB-Q SCH (08:22)
[2021-04-29] MEDS: SEVELAMER CARBONATE 800 MG TAB PO SCH (08:22)
[2021-04-29 08:23] VITALS: BP 160/52
[2021-04-29] MEDS: IPRATROPIUM/ALBUTEROL SULFATE 3 ML AMPUL.NEB IH SCH (08:40)
--- NOTE | 2021-04-29 09:44 | Progress Note ---
Assessment and Plan Assessment and plan: History of present illness: 80-year-old male present with a chief complaint of anemia. The patient was reportedly sent from [facility] for low H&H. Patient had blood drawn today which revealed an H&H of 5.3/16.3. Patient has a history end-stage renal disease but reportedly did not receive hemodialysis today secondary to the low H&H. Patient denies shortness of breath or fatigue. Patient denies complaints to me In the emergency room patient is found to have hemoglobin of 6.2 and hematocrit of 18.9. We are giving 1 unit of packed red blood cell transfusion. Will consult nephrology for hemodialysis. Hospital Course Patient admitted for symptomatic anemia. Hemoglobin noted to be 6.2. Patient was transfused 1 unit PRBC. Nephrology consulted this admission for hemodialysis. Patient will get hemodialysis today. Hemodialysis completed after 1 unit transfused. Repeat hemoglobin 6.4. Subsequently ordered additional 1 unit prbc, repeat on AM labs now 7.8. Patient is a resident of [facility] and can go back once transportation arranged.. Assessment and Plan (1) Anemia of chronic disease Current Visit: Yes Status: Acute Plan to address problem: Admit the patient to the medical floor. Most likely anemia of chronic disease secondary to her renal failure. We are transfusing 1 unit of packed red blood cell. We will consult nephrology for dialysis. Recheck CBC in the morning (2) Diabetes Current Visit: No Status: Chronic Plan to address problem: Continue with home medication insulin Levemir 5 units subcu nightly. Humalog moderate dose coverage with Accu-Chek before meals and at bedtime. Diabetic education (3) ESRD (end stage renal disease) Current Visit: No Status: Chronic Plan to address problem: We will consult nephrology for dialysis. Recheck BMP in the morning. Continue home medication (4) HTN (hypertension) Current Visit: No Status: Chronic Plan to address problem: Coreg 12.5 mg p.o. twice daily. Amlodipine 10 mg p.o. daily hydralazine 25 mg p.o. every 8 hours. We will monitor the blood pressure closely (5) DVT prophylaxis Current Visit: Yes Status: Acute Plan to address problem: SCD for DVT prophylaxis because of anemia. Pepcid 20 mg p.o. twice daily for GI prophylaxis. Patient is a full code History Interval history: No acute complaints Hospitalist Physical - Physical exam Narrative exam: General appearance: Present: no acute distress, well-nourished - EENT Eyes: Present: PERRL ENT: hearing intact, clear oral mucosa - Neck Neck: Present: supple, normal ROM - Respiratory Respiratory effort: normal Respiratory: bilateral: CTA - Cardiovascular Heart Sounds: Present: S1 & S2. Absent: rub, click - Extremities Extremities: pulses symmetrical, No edema Peripheral Pulses: within normal limits - Abdominal General gastrointestinal: Present: soft, non-tender, non-distended, normal bowel sounds Male genitourinary: Present: normal - Integumentary Integumentary: Present: clear, warm, dry - Musculoskeletal Musculoskeletal: gait normal, strength equal bilaterally - Psychiatric Psychiatric: appropriate mood/affect, intact judgment & insight - Neurologic Neurologic: CNII-XII intact, moves all extremities - Constitutional Vitals: Temp Pulse Resp BP Pulse Ox 98.8 F 58 L 18 160/52 93 04/29/21 08:18 04/29/21 08:18 04/29/21 08:18 04/29/21 08:18 04/29/21 08:40 General appearance: Present: no acute distress, well-nourished Results - Labs CBC & Chem 7: 04/29/21 05:49 04/29/21 05:49 Labs: Laboratory Last Values WBC 6.7 K/mm3 (4.5-11.0) 04/29/21 05:49 RBC 2.61 M/mm3 (3.65-5.03) L 04/29/21 05:49 Hgb 7.9 gm/dl (11.8-15.2) L 04/29/21 05:49 Hct 24.3 % (35.5-45.6) L 04/29/21 05:49 MCV 93 fl (84-94) 04/29/21 05:49 MCH 30 pg (28-32) 04/29/21 05:49 MCHC 33 % (32-34) 04/29/21 05:49 RDW 17.7 % (13.2-15.2) H 04/29/21 05:49 Plt Count 224 K/mm3 (140-440) 04/29/21 05:49 Lymph % (Auto) 4.8 % (13.4-35.0) L 04/26/21 20:16 [place] % (Auto) Photocomposing Keyboard Operator 04/29/21 05:49 Eos % (Auto) 1.6 % (0.0-4.3) 04/26/21 20:16 Baso % (Auto) 0.9 % (0.0-1.8) 04/26/21 20:16 Lymph # (Auto) 0.5 K/mm3 (1.2-5.4) L 04/26/21 20:16 [place] # (Auto) 0.7 K/mm3 (0.0-0.8) 04/26/21 20:16 Eos # (Auto) 0.2 K/mm3 (0.0-0.4) 04/26/21 20:16 Baso # (Auto) 0.1 K/mm3 (0.0-0.1) 04/26/21 20:16 Add Manual Diff Complete 04/28/21 06:59 Total Counted 100 04/28/21 06:59 Seg Neutrophils % 85.9 % (40.0-70.0) H 04/26/21 20:16 Seg Neuts % (Manual) 81 % (40.0-70.0) H 04/28/21 06:59 Band Neutrophils % 1.0 % 04/28/21 06:59 Lymphocytes % (Manual) 2.0 % (13.4-35.0) L 04/28/21 06:59 Monocytes % (Manual) 13 % (0.0-7.3) H 04/28/21 06:59 Eosinophils % (Manual) 3.0 % (0.0-4.3) 04/28/21 06:59 Nucleated RBC % Not Reportable 04/28/21 06:59 Seg Neutrophils # 8.3 K/mm3 (1.8-7.7) H 04/26/21 20:16 Seg Neutrophils # Man 5.2 K/mm3 (1.8-7.7) 04/28/21 06:59 Band Neutrophils # 0.1 K/mm3 04/28/21 06:59 Lymphocytes # (Manual) 0.1 K/mm3 (1.2-5.4) L 04/28/21 06:59 Abs React Lymphs (Man) 0.0 K/mm3 04/28/21 06:59 Monocytes # (Manual) 0.8 K/mm3 (0.0-0.8) 04/28/21 06:59 Eosinophils # (Manual) 0.2 K/mm3 (0.0-0.4) 04/28/21 06:59 Basophils # (Manual) 0.0 K/mm3 (0.0-0.1) 04/28/21 06:59 Metamyelocytes # 0.0 K/mm3 04/28/21 06:59 Myelocytes # 0.0 K/mm3 04/28/21 06:59 Promyelocytes # 0.0 K/mm3 04/28/21 06:59 Blast Cells # 0.0 K/mm3 04/28/21 06:59 WBC Morphology Not Reportable 04/28/21 06:59 Hypersegmented Neuts Not Reportable 04/28/21 06:59 Hyposegmented Neuts Not Reportable 04/28/21 06:59 Hypogranular Neuts Not Reportable 04/28/21 06:59 Smudge Cells Not Reportable 04/28/21 06:59 Toxic Granulation Not Reportable 04/28/21 06:59 Toxic Vacuolation Not Reportable 04/28/21 06:59 Dohle Bodies Not Reportable 04/28/21 06:59 Pelger-Huet Anomaly Not Reportable 04/28/21 06:59 Eve Rods Not Reportable 04/28/21 06:59 Platelet Estimate Not Reportable 04/28/21 06:59 Clumped Platelets Not Reportable 04/28/21 06:59 Plt Clumps, EDTA Not Reportable 04/28/21 06:59 Large Platelets Not Reportable 04/28/21 06:59 Giant Platelets Not Reportable 04/28/21 06:59 Platelet Satelliting Not Reportable 04/28/21 06:59 Plt Morphology Comment Not Reportable 04/28/21 06:59 RBC Morphology Not Reportable 04/28/21 06:59 Dimorphic RBCs Not Reportable 04/28/21 06:59 Polychromasia Not Reportable 04/28/21 06:59 Hypochromasia Not Reportable 04/28/21 06:59 Poikilocytosis Not Reportable 04/28/21 06:59 Anisocytosis 1+ 04/28/21 06:59 Microcytosis Not Reportable 04/28/21 06:59 Macrocytosis Not Reportable 04/28/21 06:59 Spherocytes Not Reportable 04/28/21 06:59 Pappenheimer Bodies Not Reportable 04/28/21 06:59 Sickle Cells Not Reportable 04/28/21 06:59 Target Cells Not Reportable 04/28/21 06:59 Tear Drop Cells Not Reportable 04/28/21 06:59 Ovalocytes Not Reportable 04/28/21 06:59 Helmet Cells Not Reportable 04/28/21 06:59 [place] Bodies Not Reportable 04/28/21 06:59 [place] Rings Not Reportable 04/28/21 06:59 [place] Cells Not Reportable 04/28/21 06:59 Bite Cells Not Reportable 04/28/21 06:59 Crenated Cell Not Reportable 04/28/21 06:59 Elliptocytes Not Reportable 04/28/21 06:59 Acanthocytes (Spur) Not Reportable 04/28/21 06:59 Rouleaux Not Reportable 04/28/21 06:59 Hemoglobin C Crystals Not Reportable 04/28/21 06:59 Schistocytes Not Reportable 04/28/21 06:59 Malaria parasites Not Reportable 04/28/21 06:59 Wu Bodies Not Reportable 04/28/21 06:59 Hem Pathologist Commnt No 04/28/21 06:59 Sodium 135 mmol/L (137-145) L 04/29/21 05:49 Potassium 3.8 mmol/L (3.6-5.0) 04/29/21 05:49 Chloride 95.7 mmol/L (98-107) L 04/29/21 05:49 Carbon Dioxide 26 mmol/L (22-30) 04/29/21 05:49 Anion Gap 17 mmol/L 04/29/21 05:49 BUN 35 mg/dL (9-20) H 04/29/21 05:49 Creatinine 5.1 mg/dL (0.8-1.3) H 04/29/21 05:49 Estimated GFR 13 ml/min 04/29/21 05:49 BUN/Creatinine Ratio 7 % 04/29/21 05:49 Glucose 80 mg/dL (75-100) 04/29/21 05:49 POC Glucose 112 mg/dL (70-105) H 04/28/21 21:06 Calcium 8.9 mg/dL (8.4-10.2) 04/29/21 05:49 Coronavirus (PCR) Negative (Negative) 04/28/21 10:16 Hepatitis A IgM Ab Non-reactive (NonReactive) 04/27/21 15:04 Hep Bs Antigen Nonreactive (Negative) 04/27/21 15:04 Hep B Core IgM Ab Non-reactive (NonReactive) 04/27/21 15:04 Hepatitis C Antibody Non-reactive (NonReactive) 04/27/21 15:04 Blood Type O POSITIVE 04/26/21 20:16 Antibody Screen Negative 04/26/21 20:16 Crossmatch See Detail 04/26/21 20:16 Yi/IV: Voiding Method Incontinent Active Medications - Current Medications Current Medications: Generic Name Dose Route Start Last Admin Trade Name Freq PRN Reason Stop Dose Admin Acetaminophen 650 mg 04/27/21 05:12 Acetaminophen 325 Mg Tab PO Q4H PRN Pain MILD(1-3)/Fever >100.5/ZURITA Albuterol 2.5 mg 04/27/21 05:12 Albuterol 2.5 Mg/3 Ml Nebu IH Q4HRT PRN Shortness Of Breath Amlodipine Besylate 10 mg 04/27/21 10:00 04/28/21 09:10 Amlodipine 10 Mg Tab PO 10 mg DAILY ZOË Administration Atorvastatin Calcium 20 mg 04/27/21 22:00 04/28/21 22:25 Atorvastatin 20 Mg Tab PO 20 mg QHS ZOË Administration Cholecalciferol 1,000 unit 04/27/21 10:00 04/28/21 09:10 Cholecalciferol (Vit D3) 1000 Unit (25 Mcg) Tab PO 1,000 unit QDAY ZOË Administration Famotidine 10 mg 04/27/21 10:00 04/28/21 22:25 Famotidine 10 Mg Tab PO 10 mg BID ZOË Administration Hydralazine HCl 25 mg 04/27/21 06:00 04/29/21 07:35 Hydralazine 25 Mg Tab PO 25 mg Q8HR ZOË Administration Hydromorphone HCl 0.5 mg 04/27/21 05:12 Hydromorphone 1 Mg/1 Ml Inj IV Q3H PRN Pain , Severe (7-10) Insulin Glargine 5 units 04/27/21 22:00 04/28/21 22:24 Insulin Glargine 100 Units/Ml SUB-Q Not Given QHS [facility] Insulin Human Lispro 0 unit 04/27/21 07:30 04/29/21 08:22 Insulin Lispro 100 Unit/Ml SUB-Q Not Given ACHS [facility] Protocol Lisinopril 2.5 mg 04/27/21 10:00 04/28/21 09:10 Lisinopril 5 Mg Tab PO 2.5 mg QDAY ZOË Administration Morphine Sulfate 2 mg 04/27/21 05:12 04/28/21 04:30 Morphine 2 Mg/1 Ml Inj IV 2 mg Q4H PRN Administration Pain, Moderate (4-6) Ondansetron HCl 4 mg 04/27/21 05:12 Ondansetron 4 Mg/2 Ml Inj IV Q8H PRN Nausea And Vomiting Sevelamer Carbonate 800 mg 04/27/21 08:00 04/29/21 08:22 Sevelamer Carbonate 800 Mg Tab PO Not Given TIDWM ZOË Sodium Chloride 10 ml 04/27/21 10:00 04/28/21 22:25 Sodium Chloride 0.9% 10 Ml Flush Syringe IV 10 ml BID ZOË Administration Sodium Chloride 10 ml 04/27/21 05:12 Sodium Chloride 0.9% 10 Ml Flush Syringe IV PRN PRN LINE FLUSH Torsemide 20 mg 04/27/21 06:00 04/29/21 07:35 Torsemide 10 Mg Tab PO 20 mg BID@0600,1800 ZOË Administration
[2021-04-29 11:01] LABS: Total Cells Counted 100
[2021-04-29 11:06] LABS: Hypochromasia Few; Ovalocytes Few
[2021-04-29 11:07] LABS: Platelet Estimate Consistent w Auto; Target Cells Few
--- NOTE | 2021-04-29 12:55 | Progress Note ---
Subjective Date of service: 04/29/21 Principal diagnosis: esrd Interval history: Impression/Plan: #End-stage renal disease: Patient is currently on maintenance hemodialysis continue MWF Packed red blood cell transfusion prn Will monitor dialysis-related labs periodically. 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, requiring packed red blood cell transfusion Patient may benefit from a GI evaluation as well as a hematology evaluation To monitor hemoglobin and hematocrit periodically erythropoietin as needed, #Bone mineral disorder and secondary hyperparathyroidism: Goal phosphorus under 5-1/2 PTH under 600 Monitor phosphorus and PTH level periodically, #Diet and nutrition: Nepro, multivitamin Source of information: From current chart as well luisaatient's family Patient currently dialyzes in [facility] and has seen us in the past and 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 History of present illness labs and chart reviewed he is currently a resident of [facility] he is being seen here by container was[facility] nephrology group Physical examination Vitals: Reviewed General: No acute distress HEENT: Oral mucosa moist no pallor or icterus Neck: Supple without any JVD thyromegaly or nodular mass Chest: Clear to auscultation Heart: Regular rate and rhythm S1-S2 heard no S3-S4 Abdomen: Soft nontender, bowel sounds present no renal bruit no suprapubic masses no CVA tenderness noted Extremity: Minimal edema dry skin no peripheral cyanosis Endocrine: Thyroid not enlarged Psychiatric: No agitation and aggression noted Musculoskeletal: No joint effusion noted Objective - Vital Signs Vital signs: Vital Signs - 12hr 04/29/21 04/29/21 04/29/21 05:09 07:00 08:18 Temperature 97.8 F 98.8 F Pulse Rate 59 L 58 L Respiratory 18 18 Rate Blood Pressure 160/56 160/52 O2 Sat by Pulse 95 99 99 Oximetry 04/29/21 08:40 Temperature Pulse Rate Respiratory Rate Blood Pressure O2 Sat by Pulse 93 Oximetry - Lab 04/29/21 05:49 04/29/21 05:49 Most recent lab results Calcium 8.9 mg/dL (8.4-10.2) 04/29/21 05:49 Medications & Allergies - Medications Allergies/Adverse Reactions: Allergies No Known Allergies Allergy (Verified 06/16/18 06:38) Home Medications: Home Medications Medication Instructions Recorded Confirmed Last Taken Type Cholecalciferol Vit D3 1,000 units PO QDAY 06/16/18 04/27/21 06/15/18 History 1000 units Cyanocobalamin [Vitamin B-12] 500 mcg PO DAILY 06/16/18 04/27/21 06/15/18 History 500 mcg Insulin Detemir [Levemir VIAL] 5 units SC QHS 06/16/18 04/27/21 06/15/18 History 5 units Insulin Regular, Human Inj 100 units SC TID 06/16/18 04/27/21 06/15/18 History 5 units Rosuvastatin (Nf) [Crestor] 10 mg PO QHS 06/16/18 04/27/21 06/15/18 History 10 mg Torsemide [Demadex] 20 mg PO BID 06/16/18 04/27/21 06/15/18 History 20 mg amLODIPine 10 mg PO DAILY 06/16/18 04/27/21 06/15/18 History 10 mg Aspirin [Aspir-Low] 81 mg PO DAILY 30 Days tablet. 08/28/18 04/27/21 Unknown Rx HYDROcodone/APAP 5-325 [[place] 5 - 325 each PO Q6H PRN 5 Days #20 08/28/1804/27 Unknown Rx 5-325 mg TAB] tablet Sevelamer Carbonate [Renvela] 800 mg PO TIDWM 30 Days tablet 08/28/18 04/27/21 Unknown Rx carvediloL [Coreg] 12.5 mg PO BID@0800,1700 30 Days 08/28/18 04/27/21 Unknown Rx tablet hydrALAZINE [Apresoline TAB] 25 mg PO Q8HR 30 Days tablet 08/28/18 04/27/21 Unknown Rx lisinopriL [Zestril TAB] 2.5 mg PO QDAY 30 Days tablet 08/28/18 04/27/21 Unkn own Rx Active Medications: Generic Name Dose Route Start Last Admin Trade Name Freq PRN Reason Stop Dose Admin Acetaminophen 650 mg 04/27/21 05:12 Acetaminophen 325 Mg Tab PO Q4H PRN Pain MILD(1-3)/Fever >100.5/ZURITA Albuterol 2.5 mg 04/27/21 05:12 Albuterol 2.5 Mg/3 Ml Nebu IH Q4HRT PRN Shortness Of Breath Amlodipine Besylate 10 mg 04/27/21 10:00 04/28/21 09:10 Amlodipine 10 Mg Tab PO 10 mg DAILY [facility] Administration Atorvastatin Calcium 20 mg 04/27/21 22:00 04/28/21 22:25 Atorvastatin 20 Mg Tab PO 20 mg QHS [facility] Administration Cholecalciferol 1,000 unit 04/27/21 10:00 04/28/21 09:10 Cholecalciferol (Vit D3) 1000 Unit (25 Mcg) Tab PO 1,000 unit QDAY [facility] Administration Famotidine 10 mg 04/27/21 10:00 04/28/21 22:25 Famotidine 10 Mg Tab PO 10 mg BID [facility] Administration Hydralazine HCl 25 mg 04/27/21 06:00 04/29/21 07:35 Hydralazine 25 Mg Tab PO 25 mg Q8HR [facility] Administration Hydromorphone HCl 0.5 mg 04/27/21 05:12 Hydromorphone 1 Mg/1 Ml Inj IV Q3H PRN Pain , Severe (7-10) Insulin Glargine 5 units 04/27/21 22:00 04/28/21 22:24 Insulin Glargine 100 Units/Ml SUB-Q Not Given QHS [facility] Insulin Human Lispro 0 unit 04/27/21 07:30 04/29/21 08:22 Insulin Lispro 100 Unit/Ml SUB-Q Not Given [facility] Protocol Lisinopril 2.5 mg 04/27/21 10:00 04/28/21 09:10 Lisinopril 5 Mg Tab PO 2.5 mg QDAY [facility] Administration Morphine Sulfate 2 mg 04/27/21 05:12 04/28/21 04:30 Morphine 2 Mg/1 Ml Inj IV 2 mg Q4H PRN Administration Pain, Moderate (4-6) Ondansetron HCl 4 mg 04/27/21 05:12 Ondansetron 4 Mg/2 Ml Inj IV Q8H PRN Nausea And Vomiting Sevelamer Carbonate 800 mg 04/27/21 08:00 04/29/21 08:22 Sevelamer Carbonate 800 Mg Tab PO Not Given TIDWM [facility] Sodium Chloride 10 ml 04/27/21 10:00 04/28/21 22:25 Sodium Chloride 0.9% 10 Ml Flush Syringe IV 10 ml BID ZOË Administration Sodium Chloride 10 ml 04/27/21 05:12 Sodium Chloride 0.9% 10 Ml Flush Syringe IV PRN PRN LINE FLUSH Torsemide 20 mg 04/27/21 06:00 04/29/21 07:35 Torsemide 10 Mg Tab PO 20 mg BID@0600,1800 ZOË Administration
== END 2021-04-29 14:57 ==
LOC: ED 19:31 → 4A 22:48
PROVIDERS: ADMIT Hospitalist; ATTEND Internal Medicine
DX: D64.9 Anemia, unspecified (principal); Z20.822 Contact with and (suspected) exposure to COVID-19; I13.2 Hypertensive heart and chronic kidney disease with heart failure and with stage 5 chronic kidney disease, or end stage renal disease; I50.9 Heart failure, unspecified; N18.6 End stage renal disease; E11.22 Type 2 diabetes mellitus with diabetic chronic kidney disease; D63.8 Anemia in other chronic diseases classified elsewhere; Z79.4 Long term (current) use of insulin; Z79.82 Long term (current) use of aspirin; Z99.2 Dependence on renal dialysis; Z79.899 Other long term (current) drug therapy; Z98.890 Other specified postprocedural states
CPT/HCPCS: 36415; 36430; 80048; 80074; 82962; 85014; 85018; 85025; 86850; 86900; 86901; 86920; 94640; 94760; 96374; 99284; G0257; G0378; J2270; J7040; P9016; U0003; 85007